=== PATIENT | male | born 1990 | race African-American/Black ===

== ENCOUNTER 2021-12-07 15:45 | Emergency (ER) | payer SELFPAY ==
[2021-12-08 02:14] VITALS: TEMP 99.1; O2SAT 100
[2021-12-08 02:18] VITALS: BP 118/71
--- NOTE | 2021-12-08 10:23 | ER ---
Nurse's Notes [facility] Name: Calvin Sheridan Age: 31 yrs Sex: Male : 1990 Arrival Date: 12/07/2021 Time: 15:49 Bed 11 Private MD: Diagnosis: Viral infection, unspecified Presentation: 12/07 16:01 Chief complaint: Patient states: Body aches and chills since this morning. Coronavirus ld1 screen: Client presents with at least one sign or symptom that may indicate coronavirus-19. Standard/surgical mask placed on the client. Ebola Screen: No symptoms or risks identified at this time. Initial Sepsis Screen: Does the patient meet any 2 criteria? No. Patient's initial sepsis screen is negative. Does the patient have a suspected source of infection? No. Patient's initial sepsis screen is negative. Risk Assessment: Do you want to hurt yourself or someone else? Patient reports no desire to harm self or others. Onset of symptoms was December 07, 2021. 16:01 Method Of Arrival: Ambulatory ld1 16:01 Acuity: ANASTASIIA 4 ld1 Triage Assessment: 16:01 General: Appears in no apparent distress. comfortable, Behavior is calm, cooperative, ld1 appropriate for age. Pain: Denies pain. EENT: No signs and/or symptoms were reported regarding the EENT system. Neuro: Level of Consciousness is awake, alert, obeys commands, Oriented to person, place, time, situation. Cardiovascular: Capillary refill < 3 seconds Patient's skin is warm and dry. Respiratory: Airway is patent Respiratory effort is even, unlabored. GI: Abdomen is flat, non-distended. : No signs and/or symptoms were reported regarding the genitourinary system. Derm: No signs and/or symptoms reported regarding the dermatologic system. Musculoskeletal: No signs and/or symptoms reported regarding the musculoskeletal system. Historical: - Allergies: 16:01 No Known Allergies; ld1 - Home Meds: 16:01 None [Active]; ld1 - PMHx: 16:01 None; ld1 - PSHx: 16:01 Head surgery; ld1 - Immunization history:: Adult Immunizations up to date, Client reports having NOT received the Covid vaccine. - Social history:: Smoking status: Patient reports the use of cigarette tobacco products, smokes one pack cigarettes per day. Patient/guardian denies using alcohol, street drugs. Screenin:14 Abuse screen: Denies threats or abuse. Nutritional screening: No deficits noted. bm7 Tuberculosis screening: No symptoms or risk factors identified. Fall Risk None identified. Assessment: 18:14 Reassessment: Patient and/or family updated on plan of care and expected duration. Pain bm7 level reassessed. Patient is alert, oriented x 3, equal unlabored respirations, skin warm/dry/pink. Vital Signs: 16:01 BP 131 / 82; Pulse 94; Resp 18; Temp 99.1(TE); Pulse Ox 100% on R/A; Weight 74.84 kg; ld1 Height 5 ft. 11 in. (180.34 cm); Pain 0/10; 18:09 BP 118 / 71; Pulse 68; Resp 16; Pulse Ox 100% on R/A; bm7 16:01 Body Mass Index 23.01 (74.84 kg, 180.34 cm) ld1 ED Course: 15:49 Patient arrived in ED. stiven4 15:54 Félix Nicholas is PHCP. jl9 15:54 Teja Jung MD is Attending Physician. jl9 16:01 Arm band placed on right wrist. ld1 16:04 Triage completed. ld1 16:07 COVID-19 SARS RT PCR (Document "Date of Onset" if Symptomatic) Sent. ld1 16:07 Flu Sent. ld1 18:14 Patient has correct armband on for positive identification. bm7 18:14 No provider procedures requiring assistance completed. Patient did not have IV access bm7 during this emergency room visit. Administered Medications: No medications were administered Medication: 18:14 VIS not applicable for this client. bm7 Outcome: 18:04 Discharge ordered by . adriano 18:05 Discharge ordered by . adriano 18:14 Discharged to home ambulatory. bm7 18:14 Condition: good 18:14 Discharge instructions given to patient, family. 18:14 Patient left the ED. bm7 Signatures: Shantell Rodriguez rg4 Leni Solano, RN RN bm7 Nohemi Becker RN RN ld1 Félix Nicholas jl9 Corrections: (The following items were deleted from the chart) 16:02 16:01 PSHx: None; ld1 ld1
--- NOTE | 2021-12-08 10:23 | EDPHYS ---
Physician Documentation [facility] Name: Calvin Sheridan Age: 31 yrs Sex: Male : 1990 Arrival Date: 12/07/2021 Time: 15:49 Bed 11 Private MD: Teja Mejia HPI: 12/07 18:01 This 31 yrs old Black Male presents to ER via Ambulatory with complaints of Body Aches/ jl9 chills as of this morning,. 18:01 Onset: The symptoms/episode began/occurred this morning. Associated signs and symptoms: jl9 Pertinent positives:. Modifying factors: The patient symptoms are alleviated by nothing, the patient symptoms are aggravated by nothing. Historical: - Allergies: 16:01 No Known Allergies; ld1 - Home Meds: 16:01 None [Active]; ld1 - PMHx: 16:01 None; ld1 - PSHx: 16:01 Head surgery; ld1 - Immunization history:: Adult Immunizations up to date, Client reports having NOT received the Covid vaccine. - Social history:: Smoking status: Patient reports the use of cigarette tobacco products, smokes one pack cigarettes per day. Patient/guardian denies using alcohol, street drugs. ROS: 18:02 Eyes: Negative for injury, pain, redness, and discharge, ENT: Negative for injury, jl9 pain, and discharge, Neck: Negative for injury, pain, and swelling, Cardiovascular: Negative for chest pain, palpitations, and edema, Respiratory: Negative for shortness of breath, cough, wheezing, and pleuritic chest pain, Abdomen/GI: Negative for abdominal pain, nausea, vomiting, diarrhea, and constipation, Back: Negative for injury and pain, MS/Extremity: Negative for injury and deformity, Skin: Negative for injury, rash, and discoloration, Neuro: Negative for headache, weakness, numbness, tingling, and seizure, Psych: Negative for depression, anxiety, suicide ideation, homicidal ideation, and hallucinations, Allergy/Immunology: Negative for hives, rash, and allergies, Endocrine: Negative for neck swelling, polydipsia, polyuria, polyphagia, and marked weight changes, Hematologic/Lymphatic: Negative for swollen nodes, abnormal bleeding, and unusual bruising. 18:02 Constitutional: Positive for body aches, chills. Exam: 18:02 Constitutional: This is a well developed, well nourished patient who is awake, alert, jl9 and in no acute distress. Head/Face: Normocephalic, atraumatic. Eyes: Pupils equal round and reactive to light, extra-ocular motions intact. Lids and lashes normal. Conjunctiva and sclera are non-icteric and not injected. Cornea within normal limits. Periorbital areas with no swelling, redness, or edema. ENT: Mucous membranes moist. Neck: Trachea midline, no thyromegaly or masses palpated, and no cervical lymphadenopathy. Supple, full range of motion without nuchal rigidity, or vertebral point tenderness. No Meningismus. Chest/axilla: Normal chest wall appearance and motion. Nontender with no deformity. No lesions are appreciated. Cardiovascular: Regular rate and rhythm with a normal S1 and S2. No gallops, murmurs, or rubs. Normal PMI, no JVD. No pulse deficits. Respiratory: Lungs have equal breath sounds bilaterally, clear to auscultation and percussion. No rales, rhonchi or wheezes noted. No increased work of breathing, no retractions or nasal flaring. Abdomen/GI: Soft, non-tender, with normal bowel sounds. No distension or tympany. No guarding or rebound. No evidence of tenderness throughout. Back: No spinal tenderness. No costovertebral tenderness. Full range of motion. Skin: Warm, dry with normal turgor. Normal color with no rashes, no lesions, and no evidence of cellulitis. MS/ Extremity: Pulses equal, no cyanosis. Neurovascular intact. Full, normal range of motion. Neuro: Awake and alert, GCS 15, oriented to person, place, time, and situation. Cranial nerves II-XII grossly intact. Motor strength 5/5 in all extremities. Sensory grossly intact. Cerebellar exam normal. Normal gait. Psych: Awake, alert, with orientation to person, place and time. Behavior, mood, and affect are within normal limits. Vital Signs: 16:01 BP 131 / 82; Pulse 94; Resp 18; Temp 99.1(TE); Pulse Ox 100% on R/A; Weight 74.84 kg; ld1 Height 5 ft. 11 in. (180.34 cm); Pain 0/10; 18:09 BP 118 / 71; Pulse 68; Resp 16; Pulse Ox 100% on R/A; bm7 16:01 Body Mass Index 23.01 (74.84 kg, 180.34 cm) ld1 MDM: 17:57 Patient medically screened. [facility] 18:02 Data reviewed: vital signs, nurses notes. jl9 18:02 Special discussion: Discussed findings with patient. Patient agrees to follow up with jl9 PCP in 1-2 days. . 12/07 16:05 Order name: COVID-19 SARS RT PCR (Document "Date of Onset" if Symptomatic); Complete ld1 Time: 17:58 12/07 16:05 Order name: Flu; Complete Time: 17:19 ld1 Administered Medications: No medications were administered Disposition Summary: 12/07/21 18:05 Discharge Ordered Location: Home(12/07/21 18:05) jl9 Condition: Stable(12/07/21 18:05) jl9 Diagnosis - Viral infection, unspecified(12/07/21 18:05) jl9 Followup: jl9 - With: Private Physician - When: 1 - 2 days - Reason: Recheck today's complaints, Continuance of care, Re-evaluation by your physician Discharge Instructions: - Discharge Summary Sheet jl9 - Viral Illness, Adult jl9 Forms: - Medication Reconciliation Form jl9 - Thank You Letter jl9 - Antibiotic Education jl9 - Work release form bm7 - Prescription Opioid Use jl9 Signatures: Dispatcher [employer] Teja Buckner MD MD cha Dibbern, Lauren, RN RN ld1 Félix Nicholas jl9 Corrections: (The following items were deleted from the chart) 16:02 16:01 PSHx: None; ld1 ld1 18:05 18:04 Home jl9 jl9 18:05 18:04 Stable jl9 jl9 18:05 18:04 Viral infection, unspecified jl9 jl9
== END 2021-12-07 18:14 | disposition home or self-care (01) ==
LOC: ER 15:45
DX: B34.9 Viral infection, unspecified (principal); Z20.822 Contact with and (suspected) exposure to COVID-19; F17.210 Nicotine dependence, cigarettes, uncomplicated
CPT/HCPCS: 87804; 99283; U0003

== ENCOUNTER → 2023-07-19 | Emergency (ER) | payer SELFPAY ==
[~2023-07-19] MED LIST: LIDOCAINE 1% 20 ML MDV ONE
--- NOTE | 2023-07-19 20:20 | ER ---
Nurse's Notes [facility] Name: Calvin Sheridan Age: 33 yrs Sex: Male : 1990 Arrival Date: 07/19/2023 Time: 18:11 Bed 9 Private MD: Diagnosis: Laceration without foreign body of left little finger without damage to nail Presentation: 07/18 18:28 Coronavirus screen: Client denies travel out of the [place] in the last 14 days. At this ll1 time, the client does not indicate any symptoms associated with coronavirus-19. Ebola Screen: Patient denies travel to an Ebola-affected area in the 21 days before illness onset. Initial Sepsis Screen: Does the patient meet any 2 criteria? No. Patient's initial sepsis screen is negative. Does the patient have a suspected source of infection? No. Patient's initial sepsis screen is negative. Risk Assessment: Do you want to hurt yourself or someone else? Patient reports no desire to harm self or others. Onset of symptoms was July 19, 2023. 18:28 Method Of Arrival: Ambulatory ll1 18:28 Acuity: ANASTASIIA 4 ll1 18:28 Chief complaint: Patient states: Cut L hand 5th digit on rebar 45 min [facility] LVN. Bleeding ll1 controlled. Triage Assessment: 18:29 General: Appears in no apparent distress. Behavior is calm, cooperative, appropriate ll1 for age. Pain: Denies pain. Derm: laceration L hand 5th digit Reports. Musculoskeletal: Circulation, motion, and sensation intact. Capillary refill < 3 seconds. Historical: - Allergies: 18:28 No Known Allergies; ll1 - PMHx: 18:28 None; ll1 - PSHx: 18:28 head surgery; ll1 - Immunization history:: Adult Immunizations up to date, Last tetanus immunization: < 5 years ago. - Social history:: Smoking status: Patient denies any tobacco usage or history of. Screenin:47 [facility] ED Fall Risk Assessment (Adult) Score/Fall Risk Level 0 - 2 = Low Risk. iw [facility] ED Fall Risk Assessment (Adult) History of falling in the last 3 months, including since admission No falls in past 3 months (0 pts) Confusion or Disorientation No (0 pts) Intoxicated or Sedated No (0 pts) Impaired Gait No (0 pts) Mobility Assist Device Used No (0 pt) Altered Elimination No (0 pt). Abuse screen: Denies threats or abuse. Denies injuries from another. Nutritional screening: No deficits noted. Tuberculosis screening: No symptoms or risk factors identified. Assessment: 20:47 Reassessment: Pt left prior to receiving discharge instructions. jb4 Vital Signs: 18:28 BP 135 / 77; Pulse 80; Resp 16; Temp 98.2; Pulse Ox 100% ; Weight 74.84 kg; Height 5 ll1 ft. 11 in. ; Pain 0/10; 18:28 Body Mass Index 23.01 (74.84 kg, 180.34 cm) ll1 18:28 Pain Scale: Adult ll1 ED Course: 18:13 Patient arrived in ED. mr 18:26 Teja Lemus PA is PHCP. cp 18:26 Fercho Osorio MD is Attending Physician. cp 18:29 Triage completed. ll1 18:29 Arm band placed on. ll1 18:54 Aidee Sykes, LYNETTE is Primary Nurse. ko1 20:30 Assist provider with laceration repair. iw Administered Medications: 20:15 Drug: Lidocaine Infiltration (2 %) 5 ml 5 ml Infiltration once; with epinephrine jb4 Volume: 5 ml; Route: Infiltration; Outcome: 20:20 Discharge ordered by MD. cp 20:47 Discharged to home ambulatory, iw 20:47 Condition: good 20:48 Patient left the ED. jb4 Signatures: Yuridia Huang, Reg Reg Renetta Natarajan, RN RN iw Teja Lemus PA PA cp Bryson, James, RN RN jb4 Didi Barnard RN RN [facility] Aidee Sykes, LYNETTE RN ko1 Corrections: (The following items were deleted from the chart) 18:30 18:28 Pulse 80bpm; Resp 16bpm; Pulse Ox 100%; Temp 98.2F; 74.84 kg; Height 5 ft. 11 ll1 in.; BMI: 23.0; Pain 0/10, Adult; ll1
--- NOTE | 2023-07-19 20:20 | EDPHYS ---
Physician Documentation [facility] Name: Calvin Sheridan Age: 33 yrs Sex: Male : 1990 Arrival Date: 07/19/2023 Time: 18:11 Bed 9 Private MD: ED Physician Fercho Osorio HPI: 07/18 19:00 This 33 yrs old Black Male presents to ER via Ambulatory with complaints of Finger cp laceration. 19:00 The patient or guardian complains of a laceration, clean. The complaints affect the cp left small finger. 19:00 Context: sharp edge of piece of metal. Onset: The symptoms/episode began/occurred cp today. Treatment prior to arrival includes: no previous treatment. Associated signs and symptoms: The patient has no apparent associated signs or symptoms. Historical: - Allergies: 18:28 No Known Allergies; ll1 - PMHx: 18:28 None; ll1 - PSHx: 18:28 head surgery; ll1 - Immunization history:: Adult Immunizations up to date, Last tetanus immunization: < 5 years ago. - Social history:: Smoking status: Patient denies any tobacco usage or history of. ROS: 19:05 MS/extremity: Positive for laceration, of the left small finger, Negative for decreased cp range of motion, deformity, paresthesias, 19:05 Constitutional: Negative for fever, cp 19:05 All other systems are negative, Exam: 19:10 Constitutional: The patient appears in no acute distress, alert, awake, comfortable, cp well developed, well nourished, 19:10 Musculoskeletal/extremity: Extremities: noted in the left small finger: laceration cp noted ulna side middle phalanx left small finger with mild bleeding and tenderness. no bony tenderness noted. digit neurovascular intact, ROM: full active range of motion, in the left small finger, Vital Signs: 18:28 BP 135 / 77; Pulse 80; Resp 16; Temp 98.2; Pulse Ox 100% ; Weight 74.84 kg; Height 5 ll1 ft. 11 in. ; Pain 0/10; 18:28 Body Mass Index 23.01 (74.84 kg, 180.34 cm) ll1 18:28 Pain Scale: Adult ll1 MDM: 18:26 Patient medically screened. cp 07/18 18:34 Order name: Dressing - Wound; Complete Time: 20:53 cp 07/18 18:34 Order name: Gloves, Sterile; Complete Time: 20:53 cp 07/18 18:34 Order name: Setup Suture Tray; Complete Time: 18:54 cp 07/18 18:40 Order name: Wound Care: please clean and irrigate wound; Complete Time: 20:53 cp 07/18 20:19 Order name: Wound dressing; Complete Time: 20:53 cp Administered Medications: 20:15 Drug: Lidocaine Infiltration (2 %) 5 ml 5 ml Infiltration once; with epinephrine jb4 Volume: 5 ml; Route: Infiltration; Disposition Summary: 07/19/23 20:20 Discharge Ordered Notes: Location: Home cp Problem: new cp Symptoms: have improved cp Condition: Stable cp Diagnosis - Laceration without foreign body of left little finger without damage to nail cp Followup: cp - With: Private Physician - When: 7 - 10 days - Reason: Staple/Suture removal Discharge Instructions: - Discharge Summary Sheet cp - Sutured Wound Care cp Forms: - Medication Reconciliation Form cp - Thank You Letter cp - Antibiotic Education cp - Prescription Opioid Use cp - Patient Portal Instructions cp - Leadership Thank You Letter cp Prescriptions: - Cephalexin 500 mg Oral Capsule - take 1 capsule ORAL route every 8 hours for 10 days; 30 capsule; Refills: 0, cp Product Selection Permitted Signatures: Teja Lemus PA PA cp Bryson, James RN RN jb4 Didi Barnard RN RN ll1
[2023-07-19 21:20] VITALS: BP 135/77; TEMP 98.2; O2SAT 100
== END | disposition left against medical advice (07) ==
LOC: ER 18:11
DX: S61.217A Laceration without foreign body of left little finger without damage to nail, initial encounter (principal)
CPT/HCPCS: J2001